=== PATIENT | female | born 1980 | race Caucasian/White ===

== ENCOUNTER 2017-10-05 13:34 | Inpatient (IN) ==
[2017-10-05 14:17] VITALS: BMI 26.0
[2017-10-05] MEDS ORDERED: MAG-AL + SIM ORAL LIQUID 30ml PO PRN (14:40)
[2017-10-05] MEDS ORDERED: CALCIUM CARBONATE Chewable 500mg TABLET PO PRN (14:40)
[2017-10-05] MEDS ORDERED: CARBOPROST 250 MCG/ML INJECTION IM PRN (14:40)
[2017-10-05] MEDS ORDERED: ACETAMINOPHEN 500 MG TABLET PO PRN (14:40)
[2017-10-05] MEDS ORDERED: LIDOCAINE 1% (10mg/ml) 2mL INJ PF SDV ID PRN (14:40)
[2017-10-05] MEDS ORDERED: METHYLERGONOVINE 0.2 MG/ML INJECTION IM PRN (14:40)
[2017-10-05] MEDS: LR 1,000 ML IV PRN ×2 (14:55→18:56)
[2017-10-05] MEDS: D5LR 1,000 ML IV SCH (16:32)
[2017-10-05] MEDS ORDERED: BUTORPHANOL 2 MG/ML INJECTION IVP PRN (17:37)
--- NOTE | 2017-10-05 19:45 | Anesthesia Preoperative Report ---
Anesthesia Epidural/Spinal Rec - Date and Time Date: 10/05/17 Procedure: Labor Epidural Plan: Epidural - Vital Signs /Para: P:0 - Medictaions & Allergies Inpatient Medications: Current Medications Acetaminophen (Tylenol) 500 - 1,000 mg PO Q4H PRN PRN Reason: Pain Al Hydroxide/Mg Hydroxide (Maalox Plus) 30 ml PO Q3H PRN PRN Reason: Indigestion Butorphanol Tartrate (Stadol Inj) 1 mg IVP ONE TIME PRN Last Admin: 10/05/17 17:45 Dose: 1 mg Calcium Carbonate (Tums) 500 - 1,000 mg PO Q2H PRN PRN Reason: Indigestion Carboprost Tromethamine (Hemabate) 250 mcg IM O PRN PRN Reason: .Downtime Lactated Ringer's (Lactated Ringers) 1,000 mls @ 999 mls/hr IV .Q1H1M PRN Last Admin: 10/05/17 18:56 Dose: 999 mls/hr Dextrose/Lactated Ringer's (Dextrose 5%-Lactated Ringers) 1,000 mls @ 125 mls/ hr IV .Q8H KOKO Last Admin: 10/05/17 16:32 Dose: 125 mls/hr Lidocaine HCl (Xylocaine-Mpf 1% Vial) 0.2 mg ID O PRN PRN Reason: IV Start Methylergonovine Maleate (Methergine) 0.2 mg IM O PRN Misoprostol (Cytotec) 800 mcg SD ONCE PRN Allergies/Adverse Reactions: Allergies Allergy/AdvReac Type Severity Reaction Status Date / Time No Known Allergies Allergy Verified 10/05/17 14:17 - Home Medications Home Medications: Home Medications Medication Instructions Recorded Confirmed Type Ferrous Sulfate 325 mg PO DAILY 10/05/17 10/05/17 History Vit Calc,Iron,Folic 1 each PO DAILY 10/05/17 10/05/17 History [ Vitamins] - Medical History Respiratory: DENIES: Asthma Cardiovascular: DENIES: Angina, Hypertension Gastrointestional: DENIES: Gastroesophageal Reflux Disease Renal/Endocrine: DENIES: Diabetes Mellitus Type 2 Other History: Reports: Now (admitted with bleeding. stable at this time) - Surgical History HEENT Surgeries: Reports: Eye Surgery (laser) GI Surgery/Treatments: Reports: Appendectomy (as teen) Anesthesia Reactions: None Hx Family Anesthesia Reaction: No History of Motion Sickness: No - Social History Smoking Status: Never smoker Second Hand Exposure: No Substance Use Type: does not use Hx Chewing Tobacco Use: No - Pertinent Findings Lab Data: CBC and BMP 10/05/17 15:00 - Physical Exam Respiratory Exam: lungs clear, bilateral breath sounds equal Cardiovascular Exam: regular rate and rhythm - Airway Assessment Mallampati Score: II TMD: 2 Fingerbreadths Neck Extension: good Overall Assessment: may be difficult mask vent, may be difficult intubation - ASA ASA Score: 2 - Discussion Discussion: Discussed risks/options/alternatives of anesthesia and questions answered. Patient consents. Nursing pain assessment noted. Anesthesia Discussion: spouse Attestation Statement: Prior to the delivery of any anesthetic medication, I examined the patient, developed the plan, obtained the patient's consent and discussed the risk and benefits of the procedure with the patient/guardian.
[2017-10-05] MEDS ORDERED: ROPIVACAINE 1% 10MG/ML INJ 200 MG, SUFentanil 50 MCG in NS 100 ML EPI PRN (19:46)
[2017-10-05] MEDS ORDERED: DiphenhydrAMINE 50 MG/ML INJECTION IVP PRN (19:46)
[2017-10-05] MEDS ORDERED: ONDANSETRON 4 MG/2 ML INJECTION IVP PRN (19:46)
[2017-10-05] MEDS ORDERED: NALOXONE 0.4 MG/ML INJECTION IVP PRN (19:46)
[2017-10-06] MEDS: D5LR 1,000 ML IV SCH (00:42)
[2017-10-06] MEDS: LR 1,000 ML IV PRN (02:56)
[2017-10-06] MEDS ORDERED: OXYTOCIN DRIP 30 UNIT/500 ML ML IV SCH (05:57)
[2017-10-06] MEDS ORDERED: HYDROCORTISONE 2.5% CREAM 30gm RECTALLY PRN (05:57)
[2017-10-06] MEDS ORDERED: DiphenhydrAMINE 25 MG CAPSULE PO PRN (05:57)
--- NOTE | 2017-10-06 09:55 | Anesthesia Postoperative Note ---
- Date and Time Date: 10/06/17 Time: 09:55 - Status Patient Participated in Evaluation: Patient Participated in Person Vital Signs: Temperature 98.8 F 10/06/17 06:47 Pulse Rate 96 10/06/17 09:27 Respiratory Rate 18 10/06/17 06:47 Blood Pressure 111/64 10/06/17 09:27 Pulse Oximetry 99 10/06/17 09:27 Respiratory Function: Airway Patent Cardiovascular Function: Regular Pulse Mental Status: Alert and Oriented Pain Intensity: 2 Hydration: Taking PO Fluids Complications During Recover: None Apparent - Follow-Up Instructions Instructions: Per Surgeon
[2017-10-06] MEDS: DOCUSATE CALCIUM 240 MG CAPSULE PO SCH (10:50)
[2017-10-06] MEDS: IBUPROFEN 800 MG TABLET PO PRN ×2 (10:50→18:52)
--- NOTE | 2017-10-06 12:11 | OB/GYN Progress Note ---
OB-PP Progress Note - General PPD0 Maternal Group B Strep: Negative Maternal blood type: O+ Maternal Rubella Status: Immune - Subjective Date: 10/06/17 Lochia: Minimal Pain: controlled Voiding: voiding Nausea or Vomiting Present: No - Objective Vital Signs: Last Vital Signs Temp 98.8 F 10/06/17 06:47 Pulse 96 10/06/17 09:27 Resp 18 10/06/17 06:47 BP 111/64 10/06/17 09:27 Pulse Ox 99 10/06/17 09:27 General: alert and oriented Abdomen: fundus firm, non-tender Extremities: non-tender Edema: none Laboratory: Laboratory Results - last 24 hr 10/05/17 10/05/17 10/06/17 14:52 15:00 08:05 WBC 11.8 H 21.7 H D RBC 4.46 3.48 L Hgb 12.6 9.9 L D Hct 38.9 30.3 L D MCV 87.2 87.1 MCH 28.3 28.4 MCHC 32.4 32.7 RDW Std Deviation 46.8 45.6 Plt Count 212 180 MPV 11.1 11.2 Blood Type O Positive Antibody Screen Negative - Assessment Assessment: SP, , PP Hemorrhage - Plan Plan: routine care, continue PNV
--- NOTE | 2017-10-06 12:20 | Labor and Delivery Note ---
DATE OF DELIVERY 10/06/2017 HERMANN Jackson is a 37-year-old 1 at 38 weeks 3 days gestational age who presented to Maternal/Child with complaints of bleeding. Sterile spec exam showed a moderate amount of thick blood. She was also franklin. She changed her cervix from 1 cm on the nurse's initial check to 2.5 cm on my check. She was admitted. Her membranes were ruptured, artificially returning clear fluids. We saw no further bleeding throughout the labor so I think the bleeding was from the initial cervical change. She received an epidural. She progressed steadily throughout labor and was allowed to labor down. She pushed for over three hours. She rotated the baby from OP to ROXANNE. She had a spontaneous vaginal delivery of a viable male infant, Apgars 8/9, weight 3690 g , name "Darrius." The baby was vigorous at delivery so he was placed on mom's abdomen and the cord clamping was delayed for more than two minutes. The umbilical cord was found to be tightly wound after it was cut. The placenta delivered spontaneously. She had bilateral vaginal lacerations that extended down into a second-degree perineal laceration that were all repaired. She was also given a dose of Methergine due to her bleeding. Estimated blood loss was 450 mL. Mom and baby tolerated the delivery well. MTDD
[2017-10-06] MEDS: HYDROCODONE/APAP 5mg/325mg TABLET PO PRN ×2 (14:12→21:52)
[2017-10-06 22:58] VITALS: RESP 16
[2017-10-07 09:21] VITALS: BP 102/61; PULSE 101; TEMP 98.1; O2SAT 100
[2017-10-07] MEDS: DOCUSATE CALCIUM 240 MG CAPSULE PO SCH (09:29)
[2017-10-07] MEDS: HYDROCODONE/APAP 5mg/325mg TABLET PO PRN (09:29)
== END 2017-10-07 14:59 | disposition home or self-care (01) | DRG 774 ==
LOC: OBOBS 13:39 → MC 13:41
PROVIDERS: ADMIT Obstetrics & Gynecology; ATTEND Obstetrics & Gynecology